=== PATIENT | female | born 1970 | race Caucasian/White ===

== ENCOUNTER → 2020-02-03 15:00 | Outpatient (BNVA) | payer BC, SELFPAY | PROVIDERS: Family Provider Nurse Practitioner; PCP Nurse Practitioner; Visit Provider Internal Medicine Rheumatology | DX: M05.79 Rheumatoid arthritis with rheumatoid factor of multiple sites without organ or systems involvement (principal); Z79.899 Other long term (current) drug therapy; G89.29 Other chronic pain; M25.562 Pain in left knee | CPT/HCPCS: 99214 ==